=== PATIENT | female | born 1965 | race Caucasian/White ===

== ENCOUNTER 2023-12-04 10:19 | Inpatient (IN) | payer OTHER, SELFPAY ==
[~2023-12-04] VITALS: Ht 167.6 cm; Wt 59.1 kg
[2023-12-04] MEDS ORDERED: HYDR-3363 PO (10:36)
[2023-12-04 11:44] LABS: BASO % 0.2 % (0.0-1.0); HEMATOCRIT 46.6 % (36.0-47.0); HEMOGLOBIN 16.7 g/dl (12.0-15.5); LYMPH # 0.9 10^3/uL (1.5-5.0); LYMPH % 9.1 % (24.0-44.0); MEAN CORPUSCULAR HEMOGLOBIN 30.6 pg (27.0-33.0); MEAN CORPUSCULAR HGB CONC 35.8 g/dl (32.0-36.5); MEAN CORPUSCULAR VOLUME 85.5 fl (80.0-96.0); MONO # 0.7 10^3/uL (0.0-0.8); NEUTROPHILS # 8.6 10^3/uL (1.5-8.5); NEUTROPHILS % 83.3 % (36.0-66.0); PLATELET COUNT, AUTOMATED 290 10^3/uL (150-450); RED BLOOD COUNT 5.45 10^6/uL (4.00-5.40); WHITE BLOOD COUNT 10.3 10^3/uL (4.0-10.0)
[2023-12-04] MEDS: ONDANSETRON 4MG 2ML VIAL IV ONE (11:53)
[2023-12-04] MEDS: NS 1,000 ML IV ONE ×2 (11:53→14:36)
[2023-12-04] MEDS: MORPHINE 2 MG/ML 1ML VIAL IV PRN ×2 (11:54→16:47)
[2023-12-04 12:07] LABS: CK-MB VALUE MASS < 1.0 NG/ML (<3.6)
[2023-12-04 12:08] LABS: ALBUMIN 4.8 G/DL (3.2-5.2); ALKALINE PHOSPHATASE 127 U/L (46-116); ALT/SGPT 63 U/L (7.0-40); AST/SGOT 74 U/L (<34); BILIRUBIN,DIRECT 0.3 MG/DL (<0.4); BILIRUBIN,TOTAL 1.3 MG/DL (0.3-1.2); BLOOD UREA NITROGEN 8 MG/DL (9-23); CALCIUM LEVEL 11.5 MG/DL (8.5-10.1); CARBON DIOXIDE LEVEL 31 MMOL/L (20-31); CHLORIDE LEVEL 88 MMOL/L (98-107); GLOMERULAR FILTRATION RATE > 60.0 (>51); GLUCOSE, FASTING 125 MG/DL (60-100); MAGNESIUM LEVEL 1.6 MG/DL (1.8-2.4); POTASSIUM SERUM 3.6 MMOL/L (3.5-5.1); SODIUM LEVEL 132 MMOL/L (136-145); TOTAL PROTEIN 8.1 G/DL (5.7-8.2)
[2023-12-04 12:17] LABS: LIPASE 700.00001 U/L (12-53)
[2023-12-04] MEDS: MAG SULF 1GM/100ML (MAG RUN) 1 GM in IV 1 EA IV ONE ×2 (12:20→16:49)
[2023-12-04] MEDS ORDERED: ISOVUE-370 76% 100ML VIAL As Ordered ONE (12:21)
[2023-12-04 12:28] LABS: CPK CREATINE PHOSPHOKINASE 80 U/L (34-145); MB/CK RELATIVE INDEX 1.25 (< OR =4)
[2023-12-04 13:52] LABS: CK-MB VALUE MASS < 1.0 NG/ML (<3.6)
[2023-12-04 13:57] LABS: CPK CREATINE PHOSPHOKINASE 71 U/L (34-145)
[2023-12-04] MEDS: MAALOX 30 ML SUSP *UDC PO ONE (14:36)
[2023-12-04] MEDS: PIPERACILLIN/TAZOBACTAM SOD 4.5 GM in D5W MINI-BAG PLUS 50 ML IV ONE (14:36)
[2023-12-04] MEDS ORDERED: MOM 30ML SUSPENSION UDC PO PRN (14:55)
[2023-12-04] MEDS ORDERED: NS 1,000 ML IV SCH (14:55)
[2023-12-04] MEDS ORDERED: ONDANSETRON 4MG 2ML VIAL IV PRN (14:55)
[2023-12-04 15:03] LABS: TRIGLYCERIDES LEVEL 80 MG/DL (<150)
[2023-12-04] MEDS ORDERED: MULT-40 PO (15:05)
[2023-12-04] MEDS ORDERED: LORazepam 2 MG TAB PO PRN (15:10)
[2023-12-04] MEDS ORDERED: HOME MED LIST COMPLETE! XX SCH (15:10)
[2023-12-04 16:38] VITALS: BP 162/110; TEMP 97.9; O2SAT 97
[2023-12-04 16:44] LABS: CK-MB VALUE MASS < 1.0 NG/ML (<3.6)
[2023-12-04] MEDS: LR 1,000 ML IV SCH (16:49)
[2023-12-04 16:50] LABS: CPK CREATINE PHOSPHOKINASE 70 U/L (34-145); MB/CK RELATIVE INDEX 1.42 (< OR =4)
[2023-12-04] MEDS: PANTOPRAZOLE 40MG VIAL IV SCH (16:50)
[2023-12-04] MEDS: ENOXAPARIN 40MG/0.4ML SYRINGE (J1650 PER 10MG) SC SCH (18:12)
[2023-12-04] MEDS: THIAMINE 100 MG TAB PO SCH (18:12)
[2023-12-04] MEDS: MULTIVITAMINS/MINERALS THERAP 1 TAB PO SCH (18:12)
[2023-12-04] MEDS: FOLIC ACID 1MG TAB PO SCH (18:13)
[2023-12-04] MEDS: OXAZEPAM 10MG CAP PO SCH (18:14)
[2023-12-04 19:30] VITALS: BP 164/99; TEMP 98.2; O2SAT 98
[2023-12-04 19:32] LABS: CK-MB VALUE MASS < 1.0 NG/ML (<3.6); CPK CREATINE PHOSPHOKINASE 170 U/L (34-145); MB/CK RELATIVE INDEX 0.58 (< OR =4)
[2023-12-04 20:52] LABS: CK-MB VALUE MASS < 1.0 NG/ML (<3.6)
[2023-12-04 20:58] LABS: CPK CREATINE PHOSPHOKINASE 65 U/L (34-145); MB/CK RELATIVE INDEX 1.53 (< OR =4)
[2023-12-04] MEDS: DOCUSATE SODIUM 100MG CAPSULE PO SCH (21:08)
[2023-12-04 23:23] VITALS: BP 160/98; TEMP 97.3; O2SAT 94
[2023-12-05 04:12] VITALS: BP 155/101; TEMP 98.5; O2SAT 95
[2023-12-05 07:01] VITALS: BP 158/105; TEMP 97.6; O2SAT 97
[2023-12-05 07:33] LABS: BASO % 0.3 % (0.0-1.0); HEMATOCRIT 42.6 % (36.0-47.0); HEMOGLOBIN 14.9 g/dl (12.0-15.5); LYMPH # 1.9 10^3/uL (1.5-5.0); LYMPH % 17.8 % (24.0-44.0); MEAN CORPUSCULAR HEMOGLOBIN 30.5 pg (27.0-33.0); MEAN CORPUSCULAR VOLUME 87.1 fl (80.0-96.0); MONO # 0.8 10^3/uL (0.0-0.8); NEUTROPHILS # 7.7 10^3/uL (1.5-8.5); NEUTROPHILS % 73.6 % (36.0-66.0); PLATELET COUNT, AUTOMATED 211 10^3/uL (150-450); RED BLOOD COUNT 4.89 10^6/uL (4.00-5.40); WHITE BLOOD COUNT 10.5 10^3/uL (4.0-10.0)
[2023-12-05 07:52] LABS: CK-MB VALUE MASS < 1.0 NG/ML (<3.6)
[2023-12-05 07:54] LABS: CPK CREATINE PHOSPHOKINASE 46 U/L (34-145); MB/CK RELATIVE INDEX 2.17 (< OR =4)
[2023-12-05 08:00] LABS: ALBUMIN 3.5 G/DL (3.2-5.2); ALKALINE PHOSPHATASE 101 U/L (46-116); ALT/SGPT 36 U/L (7.0-40); AST/SGOT 37 U/L (<34); BILIRUBIN,TOTAL 0.7 MG/DL (0.3-1.2); BLOOD UREA NITROGEN < 5 MG/DL (9-23); CALCIUM LEVEL 8.9 MG/DL (8.5-10.1); CARBON DIOXIDE LEVEL 30 MMOL/L (20-31); CHLORIDE LEVEL 95 MMOL/L (98-107); CREATININE FOR GFR 0.41 MG/DL (0.55-1.30); GLOMERULAR FILTRATION RATE > 60.0 (>51); GLUCOSE, FASTING 80 MG/DL (60-100); MAGNESIUM LEVEL 1.7 MG/DL (1.8-2.4); POTASSIUM SERUM 3.1 MMOL/L (3.5-5.1); SODIUM LEVEL 131 MMOL/L (136-145); TOTAL PROTEIN 6.2 G/DL (5.7-8.2)
[2023-12-05] MEDS: POTASSIUM CHLORIDE 10MEQ SR TABLET PO ONE (08:57)
[2023-12-05] MEDS: MAG SULF 1GM/100ML (MAG RUN) 1 GM in IV 1 EA IV ONE (08:59)
[2023-12-05 12:48] VITALS: BP 131/87; TEMP 98.2; O2SAT 98
[2023-12-05 16:00] VITALS: BP 140/96; TEMP 97.4; O2SAT 95
[2023-12-05] MEDS: OXAZEPAM 10MG CAP PO SCH (17:18)
[2023-12-05] MEDS: METOPROLOL TART 25 MG TABLET PO SCH (18:41)
[2023-12-05 19:33] VITALS: BP 136/90; TEMP 97.9; O2SAT 95
[2023-12-05] MEDS: ACETAMINOPHEN TAB 650MG DOSE (2X325MG) PO PRN (20:02)
[2023-12-05 23:30] VITALS: BP 125/91; TEMP 97.5; O2SAT 97
[2023-12-06] VITALS (8 sets, daily range): BP systolic 130–151; BP diastolic 84–100; TEMP 97–98.8; O2SAT 95–98
[2023-12-06 06:16] LABS: BASO % 0.5 % (0.0-1.0); EOS # 0.1 10^3/uL (0.0-0.5); EOS % 1.3 % (0.0-3.0); HEMATOCRIT 37.9 % (36.0-47.0); LYMPH # 1.7 10^3/uL (1.5-5.0); LYMPH % 21.7 % (24.0-44.0); MEAN CORPUSCULAR HEMOGLOBIN 30.5 pg (27.0-33.0); MEAN CORPUSCULAR HGB CONC 34.3 g/dl (32.0-36.5); MONO # 0.7 10^3/uL (0.0-0.8); MONO % 8.6 % (2.0-8.0); NEUTROPHILS # 5.1 10^3/uL (1.5-8.5); NEUTROPHILS % 67.4 % (36.0-66.0); PLATELET COUNT, AUTOMATED 197 10^3/uL (150-450); RED BLOOD COUNT 4.26 10^6/uL (4.00-5.40); WHITE BLOOD COUNT 7.6 10^3/uL (4.0-10.0)
[2023-12-06 06:25] LABS: ALBUMIN 3.1 G/DL (3.2-5.2); ALKALINE PHOSPHATASE 90 U/L (46-116); ALT/SGPT 26 U/L (7.0-40); AST/SGOT 25 U/L (<34); BILIRUBIN,TOTAL 0.7 MG/DL (0.3-1.2); BLOOD UREA NITROGEN < 5 MG/DL (9-23); CALCIUM LEVEL 8.6 MG/DL (8.5-10.1); CARBON DIOXIDE LEVEL 25 MMOL/L (20-31); CHLORIDE LEVEL 99 MMOL/L (98-107); GLOMERULAR FILTRATION RATE > 60.0 (>51); GLUCOSE, FASTING 81 MG/DL (60-100); MAGNESIUM LEVEL 1.6 MG/DL (1.8-2.4); POTASSIUM SERUM 3.5 MMOL/L (3.5-5.1); SODIUM LEVEL 131 MMOL/L (136-145); TOTAL PROTEIN 5.6 G/DL (5.7-8.2)
[2023-12-06] MEDS: MAG SULF 1GM/100ML (MAG RUN) 1 GM in IV 1 EA IV SCH (07:58)
[2023-12-06] MEDS: POTASSIUM CHLORIDE 10MEQ SR TABLET PO ONE (07:59)
[2023-12-06] MEDS: FLEET ENEMA PR ONE (09:18)
[2023-12-06] MEDS: NS 1,000 ML IV SCH (09:18)
[2023-12-06 10:19] LABS: PROCALCITONIN <0.04 ng/ml
[2023-12-06 11:24] LABS: LIPASE 162 U/L (12-53)
[2023-12-06] MEDS ORDERED: GASTROGRAFIN SOLUTION 30ML As Ordered ONE (12:58)
[2023-12-07 03:31] VITALS: BP 132/90; TEMP 96.9; O2SAT 99
[2023-12-07 07:33] VITALS: BP 142/94; TEMP 97.1; O2SAT 98
[2023-12-07 11:37] LABS: BLOOD UREA NITROGEN < 5 MG/DL (9-23); CALCIUM LEVEL 8.4 MG/DL (8.5-10.1); CARBON DIOXIDE LEVEL 22 MMOL/L (20-31); CHLORIDE LEVEL 100 MMOL/L (98-107); CREATININE FOR GFR 0.33 MG/DL (0.55-1.30); GLOMERULAR FILTRATION RATE > 60.0 (>51); GLUCOSE, FASTING 82 MG/DL (60-100); MAGNESIUM LEVEL 1.6 MG/DL (1.8-2.4); POTASSIUM SERUM 3.2 MMOL/L (3.5-5.1); SODIUM LEVEL 133 MMOL/L (136-145)
[2023-12-07 11:41] VITALS: BP 147/96; TEMP 96.8; O2SAT 98
[2023-12-07] MEDS: SENOKOT S TAB PO SCH (12:20)
[2023-12-07] MEDS: MAG SULF 1GM/100ML (MAG RUN) 1 GM in IV 1 EA IV SCH (14:24)
[2023-12-07] MEDS: POTASSIUM CHLORIDE 10MEQ SR TABLET PO ONE ×2 (14:24→18:33)
[2023-12-07 15:38] VITALS: BP 153/100; TEMP 97.6; O2SAT 96
[2023-12-07] MEDS: MAALOX 30 ML SUSP *UDC PO PRN (17:02)
[2023-12-07] MEDS: KCL 10MEQ/100ML SWI (KRUN) 10 MEQ in IV 1 EA IV SCH (17:13)
[2023-12-07 19:59] VITALS: BP 177/105; TEMP 96.7; O2SAT 97
[2023-12-07] MEDS: hydrALAZINE 20MG/ML 1ML VIAL IV PRN (20:35)
[2023-12-07 23:14] VITALS: BP 148/99; TEMP 97.5; O2SAT 97
[2023-12-08 03:24] VITALS: BP 153/98; TEMP 96.9; O2SAT 97
[2023-12-08 06:54] LABS: BLOOD UREA NITROGEN < 5 MG/DL (9-23); CALCIUM LEVEL 9.5 MG/DL (8.5-10.1); CARBON DIOXIDE LEVEL 23 MMOL/L (20-31); CHLORIDE LEVEL 98 MMOL/L (98-107); CREATININE FOR GFR 0.32 MG/DL (0.55-1.30); GLOMERULAR FILTRATION RATE > 60.0 (>51); GLUCOSE, FASTING 103 MG/DL (60-100); MAGNESIUM LEVEL 1.8 MG/DL (1.8-2.4); POTASSIUM SERUM 3.7 MMOL/L (3.5-5.1); SODIUM LEVEL 131 MMOL/L (136-145)
[2023-12-08 07:50] VITALS: BP 164/106; TEMP 97.5; O2SAT 97
[2023-12-08] MEDS: amLODIPine 5 MG TAB PO SCH (08:05)
[2023-12-08 09:10] VITALS: BP 160/102
[2023-12-08 09:14] VITALS: BP 160/102
[2023-12-08] MEDS: METOPROLOL TART 25 MG TABLET PO SCH (09:14)
[2023-12-08 10:11] VITALS: BP 146/98
[2023-12-08] MEDS ORDERED: MAGN400T2 PO (10:31)
[2023-12-08] MEDS ORDERED: HYDR-3363 PO (10:31)
[2023-12-08] MEDS ORDERED: POTA-298 PO (10:31)
[2023-12-08] MEDS ORDERED: SENN1TAB85 PO (10:31)
[2023-12-08] MEDS ORDERED: METO1TAB87 PO (10:31)
[2023-12-08] MEDS ORDERED: MIRA3350 PO (10:31)
== END 2023-12-08 11:16 | disposition home or self-care (01) | DRG 282 ==
LOC: M ED 10:19 → M ED INP 14:53 → M PCU 16:26
PROVIDERS: ADMIT Internal Medicine; ATTEND Internal Medicine
PROC: B246ZZZ Ultrasonography of Right and Left Heart (ICD-10-PCS; principal; 2023-12-04)
DX: K85.20 Alcohol induced acute pancreatitis without necrosis or infection (principal); I24.89 Other forms of acute ischemic heart disease; E83.42 Hypomagnesemia; D75.1 Secondary polycythemia; K56.7 Ileus, unspecified; K70.30 Alcoholic cirrhosis of liver without ascites; E87.1 Hypo-osmolality and hyponatremia; F31.9 Bipolar disorder, unspecified; G89.4 Chronic pain syndrome; F10.20 Alcohol dependence, uncomplicated; F17.200 Nicotine dependence, unspecified, uncomplicated; E86.0 Dehydration; K27.9 Peptic ulcer, site unspecified, unspecified as acute or chronic, without hemorrhage or perforation; E87.6 Hypokalemia; K59.81 Ogilvie syndrome; I10 Essential (primary) hypertension; K21.9 Gastro-esophageal reflux disease without esophagitis; Z79.899 Other long term (current) drug therapy